=== PATIENT | male | born 1970 | race Caucasian/White ===

== ENCOUNTER 2021-05-20 10:00 | Day surgery (SDC) | payer BC ==
[2021-05-18 13:05] VITALS: BMI 35.4
[~2021-05-20 10:00] MED LIST: LACTATED RINGERS 1,000 ML IV SCH; LIDOCAINE 1% (10MG/ML) FOR IV START INTRADERMA PRN
[2021-05-20 10:46] VITALS: RESP 16; TEMP 97.3
[2021-05-20] MEDS ORDERED: LIDOCAINE 1% INJ 10MG/ML (20 ML MDV) ONE (11:11)
[2021-05-20] MEDS ORDERED: PROPOFOL 10 MG/ML 20 ML VIAL IV ONE (11:11)
--- NOTE | 2021-05-20 11:26 | P.PCN ---
Date of Procedure: 05/20/21 Procedure(s) Performed: BRIEF HISTORY: Patient is a 50-year-old pleasant male, scheduled for an elective colonoscopy as a part of screening for colorectal neoplasia PROCEDURE PERFORMED: Colonoscopy. PREOPERATIVE DIAGNOSIS: Screening for colon cancer. IV sedation per Anesthesia. PROCEDURE: After informed consent was obtained, the patient, was brought into the endoscopy unit. IV sedation was administered by Anesthesia under continuous monitoring. Digital rectal examination was normal. Initially the Olympus CF-160 flexible video colonoscope was then inserted in the rectum, gradually advanced into the cecum without any difficulty. Careful examination was performed as the scope was gradually being withdrawn. Ileocecal valve and the appendiceal orifice were visualized and appeared normal. Prep was excellent. Mucosa of the cecum, ascending colon, transverse colon, descending colon, sigmoid colon, and rectum appeared normal. Retroflexion was performed in the rectum and no lesions were seen. The patient tolerated the procedure well. IMPRESSION: Normal-appearing colon from rectum to cecum with no evidence of colorectal neoplasia. RECOMMENDATIONS: Findings of this examination were discussed with the patient as well as his family. He was advised to have a repeat screening colonoscopy in 10 years..
[2021-05-20 11:45] VITALS: BP 117/71; PULSE 73
== END 2021-05-20 12:01 | disposition home or self-care (01) ==
LOC: ORWHC2ENDO 10:00
PROVIDERS: ATTEND Internal Medicine Gastroenterology
DX: Z12.11 Encounter for screening for malignant neoplasm of colon (principal)
CPT/HCPCS: 45378; J2001; J2704

== ENCOUNTER → 2021-06-16 | Outpatient (CLI) | payer BC ==
--- NOTE | 2021-06-16 15:58 | XR ---
EXAMINATION TYPE: XR chest 2V DATE OF EXAM: 06/16/2021 COMPARISON: None INDICATION: Presurgical evaluation TECHNIQUE: Frontal and lateral views of the chest are obtained. FINDINGS: The heart size is normal. The pulmonary vasculature is normal. The lungs are clear. IMPRESSION: 1. No acute pulmonary process.
== END | disposition home or self-care (01) ==
LOC: LABPAT 10:13
PROVIDERS: ATTEND Orthopaedic Surgery Orthopaedic Surgery of the Spine
DX: Z01.818 Encounter for other preprocedural examination (principal); R94.31 Abnormal electrocardiogram [ECG] [EKG]
CPT/HCPCS: 71046; 80053; 81003; 85025; 85610; 85730; 86850; 86900; 86901

== ENCOUNTER 2021-06-22 06:16 | Inpatient (IN) | payer BC ==
[2021-06-16 11:45] LABS: Basophils # (A) 0.1 k/uL (0-0.2); Basophils % (A) 1 %; Eosinophils # (A) 0.3 k/uL (0-0.7); Eosinophils % (A) 5 %; HCT 46.7 % (39.0-53.0); HGB 16.7 gm/dL (13.0-17.5); Lymphocytes # (A) 2.6 k/uL (1.0-4.8); Lymphocytes % (A) 38 %; MCHC 35.8 g/dL (31.0-37.0); MCV 92.2 fL (80.0-100.0); Mean Platelet Volume 7.5; Monocytes # (A) 0.5 k/uL (0-1.0); Monocytes % (A) 8 %; Neutrophils # (A) 3.3 k/uL (1.3-7.7); Neutrophils % (A) 48 %; Platelet Count 270 k/uL (150-450); RBC 5.07 m/uL (4.30-5.90); RDW 12.3 % (11.5-15.5); WBC 6.8 k/uL (3.8-10.6)
[2021-06-16 11:54] LABS: INR 1.1 (<1.2); Partial Thromboplastin Time 26.2 sec (22.0-30.0); Prothrombin Time 11.8 sec (9.0-12.0)
[2021-06-16 12:00] LABS: ALT 48 U/L (4-49); AST 39 U/L (17-59); African American GFR (CKD) >90 (>60 ml/min/1.73 sqM); Albumin 4.7 g/dL (3.5-5.0); Alkaline Phosphatase 72 U/L (38-126); Anion Gap 8 mmol/L; Blood Urea Nitrogen 14 mg/dL (9-20); Carbon Dioxide 29 mmol/L (22-30); Chloride 102 mmol/L (98-107); Glucose 118 mg/dL (74-99); Non-African American GFR(CKD) >90 (>60 ml/min/1.73 sqM); Potassium 4.5 mmol/L (3.5-5.1); Sodium 139 mmol/L (137-145); Total Bilirubin 0.8 mg/dL (0.2-1.3)
[2021-06-16 12:12] LABS: Appearance,Urine Clear (Clear); Bilirubin,Urine Negative (Negative); Blood,Urine Negative (Negative); Color,Urine Yellow; Glucose,Urine (UA) Negative (Negative); Ketones,Urine Negative (Negative); Leukocyte Esterase,Urine Negative (Negative); Nitrite,Urine Negative (Negative); PH, Urine 5.5 (5.0-8.0); Protein,Urine Negative (Negative); Specific Gravity,Urine 1.023 (1.001-1.035); Urobilinogen,Urine <2.0 mg/dL (<2.0)
[2021-06-18 11:10] VITALS: BMI 34.1
[~2021-06-22 06:16] MED LIST changes: +DEXAMETHASONE SOD PHOSPHATE 4 MG/ML 1 ML VIAL IV ONE; -LIDOCAINE 1% (10MG/ML) FOR IV START INTRADERMA PRN; +ONDANSETRON 4 MG/2 ML VIAL IVP ONE; +ceFAZolin 1,000 MG in SODIUM CHLORIDE 0.9% IRRIGATIO 1,000 ML IRRIGATION PRN
[2021-06-22] MEDS ORDERED: .fentaNYL (PF) 50 MCG/ML 2 ML AMP IV ONE (07:12)
[2021-06-22] MEDS ORDERED: PROPOFOL 10 MG/ML 20 ML VIAL IV ONE (07:27)
[2021-06-22] MEDS ORDERED: ROCURONIUM 10 MG/ML (5 ML VIAL) IV ONE (07:27)
[2021-06-22] MEDS ORDERED: MIDAZOLAM 2 MG/2 ML VIAL ONE (07:27)
[2021-06-22] MEDS ORDERED: KETAMINE 10 MG/ML 20 ML VIAL ONE (07:27)
[2021-06-22] MEDS ORDERED: LIDOCAINE 1% INJ 10MG/ML (20 ML MDV) ONE (07:27)
[2021-06-22] MEDS ORDERED: SODIUM CHLORIDE 0.9% IRRIG 1,000 ML BTL IRRIGATION ONE (07:27)
[2021-06-22] MEDS ORDERED: PHENYLEPHRINE-0.9% NACL SYG 1,000 MCG/10 ML SYRINGE ONE (07:27)
[2021-06-22] MEDS ORDERED: .fentaNYL (PF) 50 MCG/ML 2 ML AMP ONE (07:27)
[2021-06-22] MEDS ORDERED: HYDROmorphone (PF) 1 MG/ML ONE (07:27)
[2021-06-22] MEDS ORDERED: HEPARIN SODIUM,PORCINE 10,000 UNIT/ML 1 ML VIAL ONE (07:27)
[2021-06-22] MEDS ORDERED: SUCCINYLCHOLINE CHLORIDE VIAL 200 MG/10 ML VIAL IV ONE (07:27)
[2021-06-22] MEDS ORDERED: BUPIVACAIN-EPI 0.25%-1:200,000 30 ML VIAL SQ ONE (09:11)
[2021-06-22] MEDS ORDERED: GELATIN SPONGE,ABSORB (LARGE) 1 EACH SPONGE TOPICAL ONE (09:11)
[2021-06-22] MEDS ORDERED: THROMBIN (BOVINE) 5,000 UNIT VIAL TOPICAL ONE (09:11)
[2021-06-22] MEDS ORDERED: LACTATED RINGERS 1,000 ML IV ONE (09:13)
--- NOTE | 2021-06-22 11:49 | XR ---
Fluoroscopy History: LUMBAR FUSION fluro time- 19 sec
[2021-06-22] MEDS ORDERED: BENZOCAINE/MENTHOL LOZENG 1 EACH LOZENGE MUCOUS MEM PRN (12:03)
[2021-06-22] MEDS ORDERED: MAGNESIUM HYDROXIDE 2,400 MG/10 ML CUP PO PRN (12:03)
[2021-06-22] MEDS ORDERED: ONDANSETRON 4 MG/2 ML VIAL IVP PRN (12:11)
[2021-06-22] MEDS ORDERED: SENNOSIDES-DOCUSATE SODIUM 1 EACH TAB PO PRN (12:11)
[2021-06-22] MEDS ORDERED: HYDROcodone/APAP 5-325MG 1 EACH TAB PO PRN (12:12)
--- NOTE | 2021-06-22 12:18 | P.OP ---
Date of Procedure: 06/22/21 Preoperative Diagnosis: Recurrent disc herniation L4 5 L5-S1, severe spinal stenosis L4 5 L5-S1, degenerative disc disease L4 5 and L5-S1, low back pain, lower extremity radiculopathy, facet arthrosis Postoperative Diagnosis: Same Anesthesia: GETA Pathology: none sent Condition: stable Disposition: PACU Description of Procedure: DESCRIPTION OF PROCEDURE(S): BRIEF OPERATIVE NOTE Preoperative Diagnosis: Recurrent disc herniation L4 5 L5-S1, severe spinal stenosis L4 5 L5-S1, degenerative disc disease L4 5 and L5-S1, low back pain, lower extremity radiculopathy, facet arthrosis Postoperative Diagnosis: Same Procedure: Revision Laminectomy and decompression L4 5 L5-S1 Revision discectomy for decompression L4 5 L5-S1 Computer CT navigation aided Minimally invasive Posterior lateral decompression and fusion for 5 L5-S1 Minimally invasive Transforaminal lumbar interbody fusion for a 360 fusion L4 5 L5-S1 Placement of interbody graft L4 5 L5-S1 Use of computer navigation for fusion Local autogenous bone grafting Aspiration of bone marrow from the vertebral body pedicleL4 on the right Use of bone graft extenders Surgeon: Dr. To Special Education Educational Assistant: Sim CARDOZA who is present throughout the entire the case freeman young during positioning, dissection, exposure, visualization, and all crucial elements of the case as well as closure. Anesthesia: General anesthesia per Estimated blood loss: Approximately 200 mL 73 mL given back through Cell Saver Complications: None apparent Components implanted: K2M minimally invasive [place] pedicle screw system withscrews measuring 6.5 mm in diameter to rods one Henriette interbody cage with 10 mL of osteo amp bio4 bone graft substitute and 30 mL of the BX bone fibers to supplement the local autogenous bone graft and bone marrow aspirate Disposition: To recovery room in good stable condition. OPERATIVE INDICATIONS The patient has had severe issues at their lower extremity in her lower back over the past several years with significant worsening over the past several months. in the past the patient had had a disc herniation L4 5 and L5-S1 and underwent laminectomy decompression and discectomy. He initially had good benefit but has been having worsening of his symptoms and was found have recurrent disc herniation at L4 5 and L5-S1 with extruded fragments causing severe foraminal stenosis which correlated well with his low back and lower extremity symptoms. He is found have significant progression of the disc degeneration at L4 5 L5-S1 and disc height loss with facet arthrosis. Over the past few months the patient had pain at their back and their lower extremities. The patient is having severe radicular symptoms at their lower extremity with weakness. The patient is having significant pain in their back. They are unable to obtain any comfort. We did aggressive conservative treatment with medications therapy and interventional pain management however thery were not having any relief. The patient has been through conservative treatment. We discussed various treatment options including surgery, and the patient wishes to proceed with surgery We discussed the risk, patient's alternatives and benefits of surgery including but not limited to, risk of bleeding risk of infection, risk of need for further surgery, risk of decreased, loss of motion, muscle function, malunion nonunion, hardware failure, nerve damage, paralysis, heart attack, blindness and . They understood issues with the current pandemic and the possibility of exposure. OPERATIVE SUMMARY After discussing all the risks, patient alternatives and benefits at length, the patient elected to proceed with surgical intervention, signed informed consent, and presented for their procedure. The patient was seen and examined in the preoperative holding area and the surgical site was marked. The patient was given antibiotics and brought to the operating room. The patient was sedated and intubated by anesthesia in standard fashion. The patient was positioned on to the operating room table in a prone position on the appropriate frame which was well-padded and well molded. We were careful to pad any bony prominences and pressure points. We were careful to maintain the patient's cervical spine and good neutral alignment and position throughout. The patient was prepped and draped in a normal standard fashion. An appropriate timeout and keystone protocol performed. We were able to proceed with the surgery. The local wound area was infiltrated with local anesthetic. Over the right iliac crest I was able to make small stab incisions and establish a guidepin screw fixation to the iliac crest 2. I was able place the computer referencing device over the guidepins to establish an appropriate reference point for the Ziem CT navigation. We then were able to place patient in an appropriate drape and do a navigation spin for visualization and 3-D reconstruction of the lumbar spine. I was able utilize C-arm guidance and navigation to establish appropriate position over the pedicles bilaterally at the appropriate levels at L4-L5 and S1 bilaterally . With the appropriate levels confirmed was able to make small incisions over the appropriate pedicle sites bilaterally. Utilizing the computer navigation device I was able to establish bony landmarks at the right iliac crest for a bony reference point for the navigation device. I was able to establish a Jamshidi needle over the lateral aspect of the pedicle and advanced the trocar into the pedicle being careful not to breech superiorly inferiorly medially or laterally using computer navigation device. Position was confirmed regularly with AP and lateral images on C-arm and with the computer navigation device at the appropriate levels bilaterally at L4-L5 and S1 . I was able to establish the trocar into the pedicle appropriately into the posterior aspect of the vertebral body bilaterally at the appropriate levels. This was done at each of the pedicle positions and each of the vertebrae. At the superior vertebrae I was able to take approximately 25 mL of bone aspiration for use later in the case to supplement the allograft and autograft bone. I was able place the guidewire into the trocar and into the vertebral body appropriately under C-arm guidance. Dissection was taken down over the wire to the appropriate starting position for the screw placed. The appropriate length screw was chosen, threaded over the guidewire and screwed appropriately into the pedicle and vertebral body under C- arm guidance in excellent alignment and position with good bony purchase. This is done at each of the screw sites at the appropriate levels.. With the screws intact I extended the incision to connect the screw hole sites on the most symptomatic side on the right . I dissected down to establish access over the pars and lamina to the base of the spinous process. I was able to expose the facet joint. The capsule the facet was taken down and showed some facet arthrosis at the joint. note was made of prior laminotomies at L4 5 and L5-S1 and I performed a revision decompression with revision discectomies at each of these levels. I was able to use a combination of curettes and Kerrison rongeurs and a high-speed drill to take down the facet joint and do a facetectomy. I was able get excellent foraminal decompression and central decompression with undermining across midline to perform a laminectomy centrally and contralaterally. As able get good central decompression. The ligamentum flavum was taken down to further decompress centrally and at bilateral neural foramen. note was made of recurrent disc herniation both at L4 5 and L5-S1 with more severe disc extrusion at L4 5 I was able to expose the disc space and visualize the traversing nerve root. Note was made of some disc protrusion and disc herniation that was abutting the traversing nerve root at the level causing further compression of the nerve root. I was able to establish a annulotomy at the appropriate level protecting soft tissue and neural structures. Note was made of some disc desiccation at the disc. I performed a complete revision discectomy with accommodation of curettes and rasps and scrapers. I was able get good endplate preparation at the disc space. I sized for the appropriate size interbody spacer protecting the soft tissue and neural structures. The wound was copiously irrigated and suctioned dry. There is no evidence of any dural tear or leak. I was able to pack the disc space with local autogenous bone graft as well as a small amount of bone graft which was also placed into the interbody cage itself. Protecting the soft tissue structures and neural structures I was able place the interbody cage in good alignment and good position with good fit and fill at the interbody space. Position was confirmed with C-arm guidance. Good hemostasis maintained. There is no evidence of any dural tear or leak. The wound was irrigated and suctioned dry. With the hardware intact, intraoperative C-arm imaging was again taken which showed good alignment and position of the hardware at the appropriate levels at L4-L5 and S1 . We were then able to measure, contour and place the rods and appropriate hardware bilaterally. I was able to place capcrews, tighten them down, and torque them with the torque screwdriver appropriately. With this intact I was able to place the local autogenous bone graft with additional bone graft enhancer as necessary into the posterior lateral gutters over the decorticated transverse processes and facet joints on the contralateral side. The remainder of the bone graft was placed over the facet joint on the contralateral side after taking down the facet joint capsule. With the bone graft intact, a stable construct, and good decompression at the appropriate levels, we were able to proceed with closure. Good hemostasis was maintained. There is no evidence of dural tear or leak. The fascia was closed for a waterti ght closure. he subcuticular tissue was closed with absorbable suture. The wound was cleaned and dried and dressed with the appropriate dressing. The drapes were broken down. The patient was gently rolled back onto their hospital bed being careful to maintain their cervical spine and good neutral alignment and position. They were woken up by anesthesia, extubated, and brought to the recovery room in good stable condition. The patient will be admitted to the hospital for appropriate postoperative care, medical management and monitoring. We will continue to follow them closely about the postoperative course.
[2021-06-22] MEDS: HYDROmorphone 0.5 MG/0.5 ML SYRINGE IVP PRN ×3 (12:32→13:26)
[2021-06-22] MEDS ORDERED: SODIUM CHLORIDE 0.9% 1,000 ML IV ONE ×2 (13:45)
[2021-06-22] MEDS: CYCLOBENZAPRINE 10 MG TAB PO PRN (15:14)
[2021-06-22] MEDS: HYDROmorphone 1 MG/ML 1 ML SYRINGE IVP PRN ×3 (15:14→23:22)
[2021-06-22] MEDS: SODIUM CHLORIDE 0.9% 1,000 ML IV SCH (15:18)
[2021-06-22] MEDS: HYDROcodone/APAP 5-325MG 1 EACH TAB PO PRN (17:29)
[2021-06-22] MEDS: hydroCHLOROthiazide 25 MG TAB PO SCH (20:24)
[2021-06-22] MEDS: EZETIMIBE 10 MG TAB PO SCH (20:24)
[2021-06-22] MEDS: VALSARTAN 160 MG TAB PO SCH (20:24)
[2021-06-23] MEDS: SODIUM CHLORIDE 0.9% 1,000 ML IV SCH ×2 (01:54→17:51)
[2021-06-23] MEDS: HYDROcodone/APAP 5-325MG 1 EACH TAB PO PRN ×5 (04:35→21:05)
[2021-06-23 05:37] LABS: Basophils % (A) 0 %; Eosinophils % (A) 0 %; HCT 40.5 % (39.0-53.0); HGB 14.3 gm/dL (13.0-17.5); Lymphocytes # (A) 1.6 k/uL (1.0-4.8); Lymphocytes % (A) 11 %; MCH 32.7 pg (25.0-35.0); MCHC 35.2 g/dL (31.0-37.0); MCV 92.9 fL (80.0-100.0); Mean Platelet Volume 7.6; Monocytes # (A) 1.2 k/uL (0-1.0); Monocytes % (A) 8 %; Neutrophils # (A) 12.3 k/uL (1.3-7.7); Neutrophils % (A) 81 %; Platelet Count 232 k/uL (150-450); RBC 4.36 m/uL (4.30-5.90); RDW 12.1 % (11.5-15.5); WBC 15.3 k/uL (3.8-10.6)
[2021-06-23] MEDS: SENNOSIDES-DOCUSATE SODIUM 1 EACH TAB PO SCH (08:09)
--- NOTE | 2021-06-23 08:55 | P.PN ---
Progress Note - Text Progress Note Date: 06/23/21 Orthopedic Spine History of present illness: Patient is a pleasant 50-year-old male who is seen and examined at the bedside following posterior lateral decompression and fusion performed yesterday. Patient states they are doing ok post operatively. He has not been out of bed this morning. He is planning to work with physical therapy to increase his mobility and ambulation. His Julien catheter has remained intact. He has not eaten breakfast as he had this morning as he has not had much of an appetite postoperatively. Currently does not complain of nausea or vomiting. Patient states pain has been adequately controlled. Nursing states patient had a low- grade fever earlier this morning at 100.2 with lab testing showing leukocytosis with a WBC of 15.3. Medicine is consulted for medical management postoperatively. Patient's most recent temperature was 98.9. Physical Exam Lumbar Fusion: Status post surgical day number 1 Patient is awake, alert, and oriented 3 Vital signs stable Good chest excursion with deep inspiration and expiration Dorsiflexion, plantarflexion, and extensor hallucis longus positive sustained bilaterally No signs or symptoms of DVT; no calf pain; pneumatic cuffs intact bilateral lower extremities Optifoam dressings remain intact over the lumbar spine and right iliac crest; no erythema, purulence, or signs of infection Neurovascularly intact bilaterally lower extremities Julien catheter intact Assessment: Status post L4-5 and L5-S1 minimally invasive posterior lateral decompression and fusion with transforaminal lumbar interbody fusion Low back pain Severe spinal stenosis L4-5 and L5-S1 Recurrent lumbar disc herniation Degenerative disc disease L4-5 and L5-S1 Lumbar facet arthrosis Lower extremity radiculopathy Postoperative leukocytosis Hypertension Hyperlipidemia Obesity Plan: 1. Ambulate as tolerated; work with Physical Therapy to increase mobilization 2. Continue pain control with IV and oral medications; will plan to begin wea stephanie the patient off of IV narcotic medication in anticipation for discharge home in the next 1-2 days 3. Dressings to remain intact with Optifoam; patient may shower with dressings intact 4. Medical management can continue to manage patient for patient's other medical diagnoses 5. We will plan to discontinue the patient's Julien catheter today 6. We will continue to follow the patient closely; depending on the patient's progress, we may plan for discharge home as early as tomorrow, 7. Patient can follow-up with Sim Narvaez PA-C or Dr. Navi To at [facility] in 2-3 weeks following discharge
[2021-06-23] MEDS: HYDROmorphone 1 MG/ML 1 ML SYRINGE IVP PRN ×3 (11:12→19:20)
[2021-06-23 11:49] LABS: African American GFR (CKD) 90.6 (60.0-200.0); BUN/Creat Ratio 14.86 Ratio (12.00-20.00); Blood Urea Nitrogen 16.2 mg/dL (9.0-27.0); Calcium 9.1 mg/dL (8.7-10.3); Carbon Dioxide 22.7 mmol/L (20.0-27.5); Non-African American GFR(CKD) 78.2 (60.0-200.0); Potassium 4.1 mmol/L (3.5-5.5)
--- NOTE | 2021-06-23 12:19 | P.CONS ---
History of Present Illness - Reason for Consult Fever - History of Present Illness Patient is a pleasant 50-year-old male was admitted for the minimally invasive posterior lateral decompression and fusion surgery for L4-L5, L5-S1. Patient is comparing of cough without any sputum production. Patient had a low-grade fever yesterday patient also has leukocytosis which can be postoperative to response. Patient did pass gas patient is well-controlled patient did move his bowel yet. Patient denied any dysuria although patient's Julien cath was just removed. REVIEW OF SYSTEMS: CONSTITUTIONAL: No fever, no malaise, no fatigue. HEENT: No recent visual problems or hearing problems. Denied any sore throat. CARDIOVASCULAR: No chest pain, orthopnea, PND, no palpitations, no syncope. PULMONARY: No shortness of breath, no hemoptysis. GASTROINTESTINAL: No diarrhea, no nausea, no vomiting, no abdominal pain. NEUROLOGICAL: No headaches, no weakness, no numbness. HEMATOLOGICAL: Denies any bleeding or petechiae. GENITOURINARY: Denies any burning micturition, frequency, or urgency. MUSCULOSKELETAL/RHEUMATOLOGICAL: Denies any joint pain, swelling, or any muscle pain. ENDOCRINE: Denies any polyuria or polydipsia. The rest of the 14-point review of systems is negative. PHYSICAL EXAMINATION: GENERAL: The patient is alert and oriented x3, not in any acute distress. Well developed, well nourished. HEENT: Pupils are round and equally reacting to light. EOMI. No scleral icterus. No conjunctival pallor. Normocephalic, atraumatic. No pharyngeal erythema. No thyromegaly. CARDIOVASCULAR: S1 and S2 present. No murmurs, rubs, or gallops. PULMONARY: Chest is clear to auscultation, no wheezing or crackles. ABDOMEN: Soft, nontender, nondistended, normoactive bowel sounds. No palpable or ganomegaly. MUSCULOSKELETAL: No joint swelling or deformity. EXTREMITIES: No cyanosis, clubbing, or pedal edema. NEUROLOGICAL: Gross neurological examination did not reveal any focal deficits. SKIN: No rashes. Assessment and plan -Fever and leukocytosis: Leukocytosis is most probably reactive response post surgery fever probably secondary to atelectasis I'll rule out any infectious causes will obtain a blood culture, urine culture urine analysis and a chest x- ray. -Back surgery: Pain management as per primary service patient is clinically doing well. Incentive spirometry will be ordered -Hypertension hold hydrochlorothiazide continue valsartan -Hyperlipidemia DVT prophylaxis: As per primary service Past Medical History Past Medical History: Hyperlipidemia, Hypertension, Musculoskeletal Disorder, Sleep Apnea/CPAP/BIPAP Additional Past Medical History / Comment(s): Hx kidney stones. L4/L5 herniated discs w/ "pinched nerves," NT Rt leg. History of Any Multi-Drug Resistant Organisms: None Reported Past Surgical History: Back Surgery Additional Past Surgical History / Comment(s): LITHOTRIPSY. Colonoscopy Past Anesthesia/Blood Transfusion Reactions: No Reported Reaction Smoking Status: Never smoker - Past Family History Mother Family Medical History: No Reported History Medications and Allergies Home Medications Medication Instructions Recorded Confirmed Type Ezetimibe [Zetia] 10 mg PO HS 05/18/21 06/22/21 History HYDROcodone/APAP 5-325MG [[place] 1 tab PO Q6HR PRN 06/18/21 06/22/21 History 5-325] Naproxen Sodium [Aleve] 220 - 880 mg PO BID PRN 06/18/21 06/22/21 History Valsartan/Hydrochlorothiazide 1 each PO HS 06/18/21 06/22/21 History [Valsartan-Hctz 160-25 mg Tab] Allergies Allergy/AdvReac Type Severity Reaction Status Date / Time No Known Allergies Allergy Verified 06/22/21 06:41 Physical Exam Vitals: Vital Signs Temp Pulse Pulse Resp BP Pulse Ox 06/23/21 10:56 98.1 F 106 H 16 122/76 92 L 06/23/21 07:38 98.9 F 106 H 16 99/63 92 L 06/23/21 05:00 100.2 F H 113 H 16 158/81 91 L 06/22/21 20:11 99 F 102 H 16 118/74 06/22/21 19:43 17 06/22/21 15:30 95 133/78 95 06/22/21 15:15 95 142/82 95 06/22/21 14:59 88 17 122/85 94 L 06/22/21 14:30 95 16 122/60 96 06/22/21 14:00 96 16 119/58 96 06/22/21 13:40 101 H 16 124/71 97 06/22/21 13:25 93 18 115/63 96 06/22/21 13:10 98 18 122/67 97 06/22/21 12:55 93 16 123/67 96 06/22/21 12:40 92 16 130/65 97 06/22/21 12:25 101 H 18 129/76 97 Intake and Output 06/22/21 06/23/21 06/23/21 22:59 06:59 14:59 Intake Total 665 Output Total 1400 500 Balance 665 -1400 -500 Intake: Intake, IV Titration 265 Amount Sodium Chloride 0.9% 1, 215 000 ml @ 75 mls/hr IV . [id number] [facility] Rx#:[id number] ceFAZolin 2 gm In Sodium 50 Chloride 0.9% 50 ml @ 100 mls/hr IVPB Q8HR [facility] Rx# :[id number] Oral 400 Output: Urine 1400 500 Uretheral (Julien) 500 Other: Voiding Method Indwelling Catheter Indwelling Catheter Results CBC & Chem 7: 06/23/21 04:39 06/23/21 04:39 Labs: Abnormal Lab Results - Last 24 Hours (Table) 06/23/21 06/23/21 Range/Units 04:39 04:39 WBC 15.3 H (3.8-10.6) k/uL Neutrophils # 12.3 H (1.3-7.7) k/uL Monocytes # 1.2 H (0-1.0) k/uL Glucose 153 H (70-110) mg/dL
--- NOTE | 2021-06-23 12:39 | XR ---
EXAMINATION TYPE: XR chest 2V DATE OF EXAM: 06/23/2021 COMPARISON: Chest x-ray June 16, 2021. HISTORY: History of recent lumbar surgery with difficulty in breathing, pneumonia. TECHNIQUE: Frontal and lateral views of the chest are obtained. FINDINGS: Slightly elevated and eventrated anterior aspect right hemidiaphragm redemonstrated. New m edial right basilar focal opacity. Left lung remains clear. The cardiac silhouette size is stable and within normal limits. The osseous structures are intact. IMPRESSION: New medial right basilar localized to the middle lobe acute infiltrate and/or atelectasi s. Consider progress study.
[2021-06-23] MEDS: CYCLOBENZAPRINE 10 MG TAB PO PRN (12:46)
[2021-06-23 15:44] LABS: Appearance,Urine Clear (Clear); Bilirubin,Urine Negative (Negative); Blood,Urine Small (Negative); Color,Urine Yellow; Glucose,Urine (UA) 1+ (Negative); Hyaline Casts,Urine 3 /lpf (0-2); Ketones,Urine Negative (Negative); Leukocyte Esterase,Urine Moderate (Negative); Mucus,Urine Few /hpf; Nitrite,Urine Negative (Negative); Protein,Urine Trace (Negative); RBC,Urine 14 /hpf (0-5); Specific Gravity,Urine 1.024 (1.001-1.035); WBC,Urine 69 /hpf (0-5)
[2021-06-23] MEDS: hydroCHLOROthiazide 25 MG TAB PO SCH (21:02)
[2021-06-23] MEDS: VALSARTAN 160 MG TAB PO SCH (21:02)
[2021-06-23] MEDS: EZETIMIBE 10 MG TAB PO SCH (21:02)
[2021-06-24] MEDS: HYDROcodone/APAP 5-325MG 1 EACH TAB PO PRN ×3 (05:46→18:28)
[2021-06-24] MEDS: SENNOSIDES-DOCUSATE SODIUM 1 EACH TAB PO SCH (08:33)
[2021-06-24] MEDS: HYDROmorphone 1 MG/ML 1 ML SYRINGE IVP PRN ×2 (08:33→20:29)
--- NOTE | 2021-06-24 10:25 | P.PN ---
Progress Note - Text Progress Note Date: 06/24/21 Orthopedic Spine History of present illness: Patient is a pleasant 50-year-old male who is seen and examined at the bedside following posterior lateral decompression and fusion performed Tuesday. Patient states they are doing ok post operatively. He has improved since being seen and examined yesterday. He is examined at the bedside by Dr. To and myself. He has been able to ambulate the hallways with physical therapy. His Julien catheter has been discontinued. He is eating and voiding without difficulty. He does have some lumbar pain and stiffness postoperatively. He does state he has some pain towards his left hip today which is new postoperatively. It has had some improvement with ambulation. His right lower extremity radiculopathy has significantly improved postoperatively. Currently does not complain of nausea or vomiting. Patient states pain has been adequately controlled. Patient did have a fever again this morning morning at 102.0. Recent vital signs show a temperature of 98.9. He is being seen and examined by medicine for medical management postoperatively. Patient's most recent temperature was 98.9. Physical Exam Lumbar Fusion: Status post surgical day number 2 Patient is awake, alert, and oriented 3 Vital signs stable Good chest excursion with deep inspiration and expiration Dorsiflexion, plantarflexion, and extensor hallucis longus positive sustained bilaterally No signs or symptoms of DVT; no calf pain; pneumatic cuffs intact bilateral lower extremities Optifoam dressings remain intact over the lumbar spine and right iliac crest; no erythema, purulence, or signs of infection 2 small areas of dried blood over the surgical incision sites No significant pain with palpation around the surgical sites Neurovascularly intact bilaterally lower extremities Julien catheter intact Assessment: Status post L4-5 and L5-S1 minimally invasive posterior lateral decompression and fusion with transforaminal lumbar interbody fusion Low back pain Severe spinal stenosis L4-5 and L5-S1 Recurrent lumbar disc herniation Degenerative disc disease L4-5 and L5-S1 Lumbar facet arthrosis Lower extremity radiculopathy Postoperative leukocytosis Hypertension Hyperlipidemia Obesity Plan: 1. Ambulate as tolerated; work with Physical Therapy to increase mobilization 2. Continue pain control with IV and oral medications; will plan to begin weaning the patient off of IV narcotic medication in anticipation for discharge home in the next 1-2 days MAPS has been reviewed today, 06/24/2021. An "Opiod Start Talking" Form has been signed and placed in the patient's chart. A prescription has been written for Waldo 5 mg/25 mg 1-2 tabs every 6 hours as needed for pain, dispensed #56. Patient should avoid anti-inflammatory medications over the next 6 weeks postoperatively. He is also given a prescription for cyclobenzaprine 10 mg 1 tab 3 times a day as needed for muscle spasm, dispensed #60. Prescriptions are sent to the [facility] pharmacy located with an [facility] 3. Dressings to remain intact with Optifoam; patient may shower with dressings intact 4. Medical management can continue to manage patient for patient's other medical diagnoses 5. We will continue to follow the patient closely; depending on the patient's progress, we may plan for discharge home as early as tomorrow, 06/25/2021 6. Patient can follow-up with Sim Narvaez PA-C or Dr. Navi To at [facility] in 2-3 weeks following discharge
[2021-06-24 13:06] LABS: Basophils % (A) 0 %; Eosinophils # (A) 0.1 k/uL (0-0.7); Eosinophils % (A) 1 %; HCT 41.6 % (39.0-53.0); HGB 13.9 gm/dL (13.0-17.5); Lymphocytes # (A) 1.7 k/uL (1.0-4.8); Lymphocytes % (A) 13 %; MCHC 33.5 g/dL (31.0-37.0); Mean Platelet Volume 8.4; Monocytes # (A) 0.9 k/uL (0-1.0); Monocytes % (A) 7 %; Neutrophils # (A) 9.7 k/uL (1.3-7.7); Neutrophils % (A) 77 %; Platelet Count 240 k/uL (150-450); RBC 4.23 m/uL (4.30-5.90); RDW 11.8 % (11.5-15.5); WBC 12.6 k/uL (3.8-10.6)
[2021-06-24 13:14] LABS: African American GFR (CKD) >90 (>60 ml/min/1.73 sqM); Anion Gap 6 mmol/L; Blood Urea Nitrogen 18 mg/dL (9-20); Carbon Dioxide 32 mmol/L (22-30); Chloride 96 mmol/L (98-107); Glucose 162 mg/dL (74-99); Non-African American GFR(CKD) >90 (>60 ml/min/1.73 sqM); Potassium 3.7 mmol/L (3.5-5.1); Sodium 134 mmol/L (137-145)
[2021-06-24 13:41] LABS: MCV 98.6 fL (80.0-100.0)
--- NOTE | 2021-06-24 19:38 | P.PN ---
Subjective Progress Note Date: 06/24/21 Principal diagnosis: Leukocytosis/fever; possible pneumonia Back surgery Hypertension 50-year-old male was admitted for the minimally invasive posterior lateral decompression and fusion surgery for L4-L5, L5-S1. Patient is comparing of cough without any sputum production. Patient had a low-grade fever yesterday patient also has leukocytosis which can be postoperative to response. Patient did pass gas patient is well-controlled patient did move his bowel yet. Patient denied any dysuria although patient's Julien cath was just removed. 06/24/2021 Patient is seen and evaluated in room at bedside; reports was able to ambulate in the hallway with physical therapy Patient is status post posterior lateral decompression and fusion; POD #2 Vital signs reveal temperature of 99.1, pulse 106, respiration 18 and blood pressure 122/76, O2 saturation 93% on room air Labs reveal downward trend of WBC from 15.3 yesterday down to 12.6; sodium 134: Present 2.7, BUN/creatinine of 18/0.96; UA is positive for moderate amount of leukocyte esterase and WBCs; chest x-ray reveals new medial right basilar infiltrate, localized to middle lobe versus atelectasis Orthopedic surgery recommending to continue to ambulate with physical therapy with plans to continue pain control with IV and oral medications with wean off IV narcotics in next 1-2 days Patient continues to have episodes of elevated temperature; we will add IV Rocephin to cover UTI and pneumonia along with azithromycin; monitor CBC, CMP and pro-calcitonin Objective - Vital Signs Vital signs: Vital Signs Temp 99.1 F 06/24/21 11:13 Pulse 106 H 06/24/21 11:13 Resp 18 06/24/21 11:13 BP 122/76 06/24/21 11:13 Pulse Ox 93 L 06/24/21 11:13 Intake & Output 06/23/21 06/24/21 06/24/21 18:59 06:59 18:59 Intake Total 300 Output Total 500 Balance -500 300 Intake: Oral 300 Output: Urine 500 Uretheral (Julien) 500 Other: Voiding Method Indwelling Catheter Toilet Toilet Urinal Urinal # Voids 2 1 - Exam GENERAL: The patient is alert and oriented x3, not in any acute distress. Well developed, well nourished. HEENT: Pupils are round and equally reacting to light. EOMI. No scleral icterus. No conjunctival pallor. Normocephalic, atraumatic. No pharyngeal erythema. No thyromegaly. CARDIOVASCULAR: S1 and S2 present. No murmurs, rubs, or gallops. PULMONARY: Chest is clear to auscultation, no wheezing or crackles. ABDOMEN: Soft, nontender, nondistended, normoactive bowel sounds. No palpable organomegaly. MUSCULOSKELETAL: No joint swelling or deformity. EXTREMITIES: No cyanosis, clubbing, or pedal edema. NEUROLOGICAL: Gross neurological examination did not reveal any focal deficits. SKIN: No rashes. - Labs CBC & Chem 7: 06/24/21 12:43 06/24/21 12:43 Labs: Abnormal Lab Results - Last 24 Hours (Table) 06/23/21 Range/Units 15:21 Urine Protein Trace H (Negative) Urine Glucose (UA) 1+ H (Negative) Urine Blood Small H (Negative) Ur Leukocyte Esterase Moderate H (Negative) Urine RBC 14 H (0-5) /hpf Urine WBC 69 H (0-5) /hpf Hyaline Casts 3 H (0-2) /lpf Urine Mucus Few H (None) /hpf Microbiology - Last 24 Hours (Table) 06/23/21 15:21 Urine Culture - Preliminary Urine,Clean Catch Assessment and Plan Assessment: Assessment and plan -Fever and leukocytosis: Leukocytosis is most probably reactive response post surgery fever probably secondary to atelectasis I'll rule out any infectious causes will obtain a blood culture, urine culture urine analysis and a chest x- ray. -Back surgery: Pain management as per primary service patient is clinically doing well. Incentive spirometry will be ordered -Hypertension hold hydrochlorothiazide continue valsartan -Hyperlipidemia DVT prophylaxis: As per primary service
[2021-06-24 20:14] VITALS: RESP 16
[2021-06-24] MEDS: VALSARTAN 160 MG TAB PO SCH (20:19)
[2021-06-24] MEDS: EZETIMIBE 10 MG TAB PO SCH (20:19)
[2021-06-24] MEDS: hydroCHLOROthiazide 25 MG TAB PO SCH (20:20)
[2021-06-24] MEDS ORDERED: AZITHROMYCIN 500 MG in SODIUM CHLORIDE 0.9% 250 ML IVPB SCH (21:00)
[2021-06-25] MEDS: HYDROcodone/APAP 5-325MG 1 EACH TAB PO PRN (00:43)
[2021-06-25 00:49] VITALS: TEMP 98.7
[2021-06-25 04:43] VITALS: BP 122/74; PULSE 95
[2021-06-25 06:31] LABS: Basophils % (A) 0 %; Eosinophils # (A) 0.3 k/uL (0-0.7); Eosinophils % (A) 3 %; HCT 39.7 % (39.0-53.0); HGB 13.3 gm/dL (13.0-17.5); Lymphocytes # (A) 1.9 k/uL (1.0-4.8); Lymphocytes % (A) 18 %; MCH 32.9 pg (25.0-35.0); MCHC 33.5 g/dL (31.0-37.0); MCV 98.2 fL (80.0-100.0); Mean Platelet Volume 7.8; Monocytes # (A) 0.7 k/uL (0-1.0); Monocytes % (A) 7 %; Neutrophils # (A) 7.6 k/uL (1.3-7.7); Neutrophils % (A) 71 %; Platelet Count 238 k/uL (150-450); RBC 4.05 m/uL (4.30-5.90); RDW 11.9 % (11.5-15.5); WBC 10.7 k/uL (3.8-10.6)
[2021-06-25] MEDS: HYDROmorphone 1 MG/ML 1 ML SYRINGE IVP PRN (08:38)
[2021-06-25] MEDS: SENNOSIDES-DOCUSATE SODIUM 1 EACH TAB PO SCH (08:40)
[2021-06-25 09:36] LABS: African American GFR (CKD) 100.6 (60.0-200.0); Anion Gap 12.2 mmol/L (10.00-18.00); BUN/Creat Ratio 14.4 Ratio (12.00-20.00); Blood Urea Nitrogen 14.4 mg/dL (9.0-27.0); Calcium 8.7 mg/dL (8.7-10.3); Carbon Dioxide 27.8 mmol/L (20.0-27.5); Non-African American GFR(CKD) 86.8 (60.0-200.0)
--- NOTE | 2021-06-25 10:30 | P.DS ---
Providers Date of admission: 06/25/21 07:50 Attending physician: Odin To Consults: 06/22/21 17:01 Consult Physician Routine Consulting Provider: Lisbet Main Consult Reason/Comments: medical management Do you want consulting provider notified?: Yes Primary care physician: Elizabeth Emmanuel Hospital Course: The patient presented on the day of admission as per their operative note. He underwent lumbar decompression and fusion and feels that his legs are doing much better. His strength is improving in his lower extremities. He is able to void freely and he is ambulatory into the holes. He is tolerating his radial diet and is passing gas. Physical Exam The incision site is clean dry and intact. There is no erythema no drainage. There is no purulence no evidence of infection. There is no drainage there is no significant swelling Abdomen soft and nontender. Chest has good excursion with deep inspiration and expiration. The patient has active and passive range of motion intact at the upper and lower extremities. There is no acute change in neurologic status. He has sustained dorsal flexion plantarflexion and EHL intact with good strength. His calves and thighs are soft nontender. Hospital Course Postoperative day #3 status post minimally invasive decompression and fusion for his spinal stenosis and recurrent disc herniations with lower extremity radiculopathy. The patient has been making good progress postoperatively. They have completed the prophylactic antibiotics without any signs or symptoms of infection. The patient has been able to advance their diet, and is tolerating diet adequately. The pain was initially controlled with IV medications and is now controlled appropriately with oral medications. The patient has been able to increase their mobilization. The patient has progressed appropriately. I think they are in good stable condition for discharge today. They will be sent home with appropriate prescriptions. I answered their questions to the best of my ability in a language that they can understand and they are agreeable with the plan. They will follow up as directed in approximately 2 weeks or sooner if he is having any problems. Patient Condition at Discharge: Good Plan - Discharge Summary Discharge Rx Participant: No New Discharge Prescriptions: New HYDROcodone/APAP 5-325MG [Friendship 5] 1 - 2 each PO Q6HR PRN #56 tab PRN Reason: Pain Cyclobenzaprine [Flexeril] 10 mg PO TID PRN #60 tab PRN Reason: Muscle Spasm No Action Ezetimibe [Zetia] 10 mg PO HS Valsartan/Hydrochlorothiazide [Valsartan-Hctz 160-25 mg Tab] 1 each PO HS Naproxen Sodium [Aleve] 220 - 880 mg PO BID PRN PRN Reason: Pain HYDROcodone/APAP 5-325MG [Friendship 5-325] 1 tab PO Q6HR PRN PRN Reason: Pain Discharge Medication List Ezetimibe [Zetia] 10 mg PO HS 05/18/21 [History] HYDROcodone/APAP 5-325MG [Friendship 5-325] 1 tab PO Q6HR PRN 06/18/21 [History] Naproxen Sodium [Aleve] 220 - 880 mg PO BID PRN 06/18/21 [History] Valsartan/Hydrochlorothiazide [Valsartan-Hctz 160-25 mg Tab] 1 each PO HS 06/18/21 [History] Cyclobenzaprine [Flexeril] 10 mg PO TID PRN #60 tab 06/24/21 [Rx] HYDROcodone/APAP 5-325MG [Friendship 5] 1 - 2 each PO Q6HR PRN #56 tab 06/24/21 [Rx] Follow up Appointment(s)/Referral(s): [facility] [NON-STAFF] - 1 Week Sim Narvaez PAC [PHYSICIAN ARCHIVAL RECORDS CLERK] - 2 Weeks (Patient may follow-up with Sim Narvaez PA-C or Dr. Navi To at [facility] in 2-3 weeks following discharge. ) Activity/Diet/Wound Care/Special Instructions: 1. Patient may shower with Optifoam dressing intact. 2. Patient may remove Optifoam dressing in 4 days and shower without a dressing at that time. 3. Patient should refrain from driving until at least after their first follow- up appointment in the office. 4. Patient should avoid excessive bending, twisting, lifting; avoid overhead lifting; no lifting greater than 10 pounds 5. Take medications as prescribed 6. Do not soak in tub Discharge Disposition: HOME SELF-CARE
--- NOTE | 2021-06-25 17:48 | P.PN ---
Subjective Progress Note Date: 06/25/21 Principal diagnosis: Leukocytosis/fever; possible pneumonia Back surgery Hypertension 50-year-old male was admitted for the minimally invasive posterior lateral decompression and fusion surgery for L4-L5, L5-S1. Patient is comparing of cough without any sputum production. Patient had a low-grade fever yesterday patient also has leukocytosis which can be postoperative to response. Patient did pass gas patient is well-controlled patient did move his bowel yet. Patient denied any dysuria although patient's Julien cath was just removed. 06/24/2021 Patient is seen and evaluated in room at bedside; reports was able to ambulate in the hallway with physical therapy Patient is status post posterior lateral decompression and fusion; POD #2 Vital signs reveal temperature of 99.1, pulse 106, respiration 18 and blood pressure 122/76, O2 saturation 93% on room air Labs reveal downward trend of WBC from 15.3 yesterday down to 12.6; sodium 134: Present 2.7, BUN/creatinine of 18/0.96; UA is positive for moderate amount of leukocyte esterase and WBCs; chest x-ray reveals new medial right basilar infiltrate, localized to middle lobe versus atelectasis Orthopedic surgery recommending to continue to ambulate with physical therapy with plans to continue pain control with IV and oral medications with wean off IV narcotics in next 1-2 days Patient continues to have episodes of elevated temperature; we will add IV Rocephin to cover UTI and pneumonia along with azithromycin; monitor CBC, CMP and pro-calcitonin 06/25/2021 Patient is seen and evaluated in room at bedside; denies any significant comp laints; lab results discussed with patient; blood cultures and urine cultures are pending; she does currently on IV Rocephin and azithromycin for UTI and possible; recommend continuing azithromycin. Discharge; patient likely to be discharged per surgical service Objective - Vital Signs Vital signs: Vital Signs Temp 98.7 F 06/25/21 04:41 Pulse 95 06/25/21 08:00 Resp 16 06/25/21 08:00 BP 122/74 06/25/21 04:41 Pulse Ox 91 L 06/25/21 04:41 Intake & Output 06/24/21 06/25/21 06/25/21 18:59 06:59 18:59 Intake Total 100 360 Output Total 400 400 Balance -300 -40 Intake: Oral 100 360 Output: Urine 400 400 Other: Voiding Method Toilet Toilet Toilet Urinal Urinal Urinal # Voids 1 3 3 - Labs CBC & Chem 7: 06/25/21 05:46 06/25/21 05:46 Labs: Abnormal Lab Results - Last 24 Hours (Table) 06/24/21 06/24/21 06/24/21 Range/Units 12:43 12:43 12:43 WBC 12.6 H (3.8-10.6) k/uL RBC 4.23 L (4.30-5.90) m/uL Neutrophils # 9.7 H (1.3-7.7) k/uL Sodium 134 L (137-145) mmol/L Chloride 96 L (98-107) mmol/L Carbon Dioxide 32 H (22-30) mmol/L Glucose 162 H (74-99) mg/dL Procalcitonin 1.31 H (0.02-0.09) ng/mL 06/25/21 06/25/21 Range/Units 05:46 05:46 WBC 10.7 H (3.8-10.6) k/uL RBC 4.05 L (4.30-5.90) m/uL Neutrophils # (1.3-7.7) k/uL Sodium (137-145) mmol/L Chloride (98-107) mmol/L Carbon Dioxide 27.8 H (22-30) mmol/L Glucose 120 H (74-99) mg/dL Procalcitonin (0.02-0.09) ng/mL Microbiology - Last 24 Hours (Table) 06/23/21 15:21 Urine Culture - Final Urine,Clean Catch 06/23/21 12:52 Blood Culture - Preliminary Blood No Growth after 24 hours Assessment and Plan Assessment: Assessment and plan -Fever and leukocytosis: Leukocytosis is most probably reactive response post surgery fever probably secondary to atelectasis I'll rule out any infectious causes will obtain a blood culture, urine culture urine analysis and a chest x- ray. -Back surgery: Pain management as per primary service patient is clinically doing well. Incentive spirometry will be ordered -Hypertension hold hydrochlorothiazide continue valsartan -Hyperlipidemia DVT prophylaxis: As per primary service
== END 2021-06-25 12:50 | disposition home or self-care (01) | DRG 454 ==
LOC: OR 06:16 → 5NMEDONC 11:42 → OR 06-23 04:25 → OBSVTOIN 06-25 07:50
PROVIDERS: ADMIT Orthopaedic Surgery Orthopaedic Surgery of the Spine; ATTEND Orthopaedic Surgery Orthopaedic Surgery of the Spine
PROC: 0SG3071 Fusion of Lumbosacral Joint with Autologous Tissue Substitute, Posterior Approach, Posterior Column, Open Approach (ICD-10-PCS; principal; 2021-06-25)
PROC: 4A11X4G Monitoring of Peripheral Nervous Electrical Activity, Intraoperative, External Approach (ICD-10-PCS; principal; 2021-06-25)
PROC: 0SB40ZZ Excision of Lumbosacral Disc, Open Approach (ICD-10-PCS; principal; 2021-06-25)
PROC: 01NB0ZZ Release Lumbar Nerve, Open Approach (ICD-10-PCS; principal; 2021-06-25)
PROC: 00NY0ZZ Release Lumbar Spinal Cord, Open Approach (ICD-10-PCS; principal; 2021-06-25)
PROC: 0SG30AJ Fusion of Lumbosacral Joint with Interbody Fusion Device, Posterior Approach, Anterior Column, Open Approach (ICD-10-PCS; principal; 2021-06-25)
PROC: 07DS3ZZ Extraction of Vertebral Bone Marrow, Percutaneous Approach (ICD-10-PCS; principal; 2021-06-25)
PROC: 8E0WXBG Computer Assisted Procedure of Trunk Region, With Computerized Tomography (ICD-10-PCS; principal; 2021-06-25)
PROC: 01NR0ZZ Release Sacral Nerve, Open Approach (ICD-10-PCS; principal; 2021-06-25)
DX: M96.0 Pseudarthrosis after fusion or arthrodesis (principal); J98.11 Atelectasis; N39.0 Urinary tract infection, site not specified; M43.17 Spondylolisthesis, lumbosacral region; M48.07 Spinal stenosis, lumbosacral region; M51.17 Intervertebral disc disorders with radiculopathy, lumbosacral region; M47.27 Other spondylosis with radiculopathy, lumbosacral region; M79.18 Myalgia, other site; G47.30 Sleep apnea, unspecified; I10 Essential (primary) hypertension; M46.97 Unspecified inflammatory spondylopathy, lumbosacral region; D72.829 Elevated white blood cell count, unspecified; E66.9 Obesity, unspecified; E78.5 Hyperlipidemia, unspecified; Z79.899 Other long term (current) drug therapy; Z87.442 Personal history of urinary calculi; Z68.34 Body mass index [BMI] 34.0-34.9, adult
CPT/HCPCS: 71046; 72100; 80048; 80053; 81001; 81003; 84145; 85025; 85610; 85730; 86850; 86891; 86900; 86901; 87040; 87086; 87635